=== PATIENT | male | born 1945 | race Caucasian/White ===

== ENCOUNTER 2020-05-29 21:18 | Emergency (ER) | payer MEDICARE, OTHER ==
[2020-05-29 21:44] VITALS: BP 176/88
--- NOTE | 2020-05-29 22:50 | ER Document Report ---
ED Medical Screen (RME) - General Chief Complaint: Fall Stated Complaint: FALL Time Seen by Provider: 05/29/20 22:47 - HPI Notes: 05/29/20 22:48 74-year-old male to the emergency department with complaints of a laceration to his posterior head that occurred just prior to arrival. He was helping his who has brain cancer try to get up. She was very weak and nearly fell and he caught her. As they were standing back up she let go and he fell backwards and struck his head onto the side of the bathtub. States there was a lot of blood. He denies any loss of consciousness or nausea or vomiting. He states he is not on any blood thinners. He admits that he has pain across the back of his shoulders but denies any midline neck pain. Brief medical exam notes a posterior occipital laceration that is approximately 4-1/2 cm in length with active oozing of the site. I performed a brief medical screening exam on the patient determined that the patient needs further evaluation and management by main side provider. I have placed initial orders to help expedite care. Physical Exam - Vital signs Vitals: Temp Pulse Resp BP Pulse Ox 98.3 F 88 18 176/88 H 96 05/29/20 21:41 05/29/20 21:41 05/29/20 21:41 05/29/20 21:41 05/29/20 21:41 Course - Vital Signs Vital signs: Temp Pulse Resp BP Pulse Ox 98.3 F 88 18 176/88 H 96 05/29/20 21:41 05/29/20 21:41 05/29/20 21:41 05/29/20 21:41 05/29/20 21:41
[2020-05-29] MEDS ORDERED: DIPH/PERTUSS(ACELL)/TETANUS VAC/PF 0.5 ML SYR (>=10YO) IM ONE (22:53)
--- NOTE | 2020-05-29 23:28 | RADIOLOGY REPORT (SQ) ---
INDICATION: head injury. Superficial soft tissue injury post trauma COMPARISON: None CORRELATION: None TECHNIQUE: Noncontrast spiral axial CT images were obtained from the skull base to vertex. This exam was performed according to our departmental dose-optimization program, which includes automated exposure control, adjustment of the mA and/or kV according to patient size and/or use of iterative reconstruction techniques. FINDINGS: There is no evidence of acute intracranial hemorrhage, midline shift, mass effect or mass lesion. Camacho-white differentiation is normal. There is no evidence of acute large territory infarct. Age-related involutional changes are identified. Presumed old small vessel ischemic changes are seen predominantly in a periventricular distribution.. Vascular calcification. Superficial soft tissue injury to the galea posteriorly The visualized paranasal sinuses are grossly clear. The orbits and eyeballs are unremarkable. The mastoid air cells are clear. Skull base and calvarium appear intact. IMPRESSION: No acute intracranial process is identified.
[2020-05-30] MEDS ORDERED: LIDOCAINE 1%/EPINEPHRINE INJ 20 ML VIAL INJ ONE (00:32)
--- NOTE | 2020-05-30 00:34 | ER Document Report ---
ED Wound - General Chief Complaint: Laceration Stated Complaint: FALL Time Seen by Provider: 05/29/20 22:47 Primary Care Provider: OCHOA SEE MD [Primary Care Provider] - Follow up as needed Notes: Patient is a 74-year-old male who comes emergency department for chief complaint of a laceration to his posterior scalp/head. He states that he was helping his to stand up, she was very weak and nearly fell, he caught her but has ever standing back up he fell backwards and struck his head on the side of the bathtub causing a laceration and bleeding. He denies loss of consciousness, nausea, vomiting, focal numbness or weakness. He is not on any blood thinners. Tetanus is not up to date. He denies any neck pain but he started to develop some soreness in the top of his shoulders. Son is at bedside and brought the patient to the emergency department. - Related Data Home Medications: benicar Past Medical History - General Information source: Patient, Relative - Son - Social History Smoking Status: Never Smoker Frequency of alcohol use: None Drug Abuse: None Lives with: Family Family History: Reviewed & Not Pertinent - Immunizations Immunizations up to date: No Hx Diphtheria, Pertussis, Tetanus Vaccination: Yes Review of Systems - Review of Systems Constitutional: No symptoms reported EENT: No symptoms reported Cardiovascular: No symptoms reported Respiratory: No symptoms reported Gastrointestinal: No symptoms reported Genitourinary: No symptoms reported Male Genitourinary: No symptoms reported Musculoskeletal: See HPI Skin: See HPI Hematologic/Lymphatic: No symptoms reported Neurological/Psychological: See HPI Physical Exam - Vital signs Vitals: Temp Pulse Resp BP Pulse Ox 98.3 F 88 18 176/88 H 96 05/29/20 21:41 05/29/20 21:41 05/29/20 21:41 05/29/20 21:41 05/29/20 21:41 - Notes Notes: GENERAL: Alert, interacts well. Patient with no signs of distress HEAD: Normocephalic. There is a 5 cm slightly irregular laceration that is horizontal, located over the occipital scalp. No noted hematoma, no other signs of trauma EYES: Pupils equal, round, and reactive to light. Extraocular movements intact. ENT: Oral mucosa moist, tongue midline. Oropharynx unremarkable. Airway patent. Nares patent, sinuses non-tender, ear canals unremarkable, TM's intact. NECK: Full range of motion. Supple. Trachea midline. No lymphadenopathy. LUNGS: Clear to auscultation bilaterally, no wheezes, rales, or rhonchi. No respiratory distress. Non-tender chest wall. HEART: Regular rate and rhythm. No murmur ABDOMEN: Soft, non-tender. Non-distended. EXTREMITIES: Moves all 4 extremities spontaneously. No edema, normal radial and dorsalis pedis pulses bilaterally. No cyanosis. BACK: no cervical, thoracic, lumbar midline tenderness. No saddle anesthesia, normal distal neurovascular exam. Moves all extremities in full range of motion. NEUROLOGICAL: Alert and oriented x3. Normal speech. Cranial nerves II through XII grossly intact. Strength 5/5 in all extremities. PSYCH: Normal affect, normal mood. SKIN: Warm, dry, normal turgor. No rashes or lesions noted. Course - Re-evaluation Re-evalutation: Patient with a laceration over the posterior scalp, no other signs of trauma. Patient states he is getting some general soreness in his shoulders now but he has no neck pain, there are no signs of trauma over the back, patient has no neurological deficits. CAT scan was performed in triage, this shows no acute findings. I discussed with patient, because of his lack of symptoms and injury on exam we did not add a cervical spine at this time. Wound was closed with valentin, discussed care, follow-up, return cautions, discussed handed precautions with patient and family, they state understanding and agreement. - Vital Signs Vital signs: Temp Pulse Resp BP Pulse Ox 98.3 F 88 18 176/88 H 96 05/29/20 21:41 05/29/20 21:41 05/29/20 21:41 05/29/20 21:41 05/29/20 21:41 Procedures - Laceration/Wound Repair Occipital scalp Wound length (cm): 5 Wound's Depth, Shape: Irregular Laceration pre-procedure: Sterile PPE donned, Sterile drapes applied, Shur-Clens applied Anesthetic type: 1% Lidocaine w/epi Wound explored: Clean, No foreign body removed Wound Repaired With: [place] Number of Sutures: 9 - [place] Post-procedure wound care: Sterile dressing applied Post-procedure NV exam normal: Yes Complications: No Discharge - Discharge Clinical Impression: Head injury Qualifiers: Encounter type: initial encounter Qualified Code(s): S09.90XA - Unspecified injury of head, initial encounter Scalp laceration Qualifiers: Encounter type: initial encounter Qualified Code(s): S01.01XA - Laceration without foreign body of scalp, initial encounter Condition: Stable Disposition: HOME, SELF-CARE Additional Instructions: The CAT scan of the head does not show any concerning findings. Please follow head injury precautions listed below. The valentin need to be removed in 7 days at a medical facility. Keep the area clean, clean gently with soap and water, dab dry, avoid soaking or scrubbing. You can apply a topical antibiotic to the area. Return for any signs of infection including developing or spreading redness, pain, discolored discharge, fever, etc. Head Injury Precautions At this point, there is no evidence that your head injury is serious. Observation is necessary, however. Limit activity for the first 24 hours. During the first 24 hours, check to see approximately every two to three hours that the patient is easily arousable, responds normally, and can perform common tasks such as walking without difficulty. Contact your doctor or go to the hospital if any of the following things occur: Persistent vomiting, difficulty in arousing the patient, worsening or continued headache, or failure to improve as expected. Head injuries can cause symptoms that persist for a few days or even a few weeks. Referrals: OCHOA SEE MD [Primary Care Provider] - Follow up as needed
== END 2020-05-30 01:45 | disposition home or self-care (01) ==
LOC: ER 21:18
DX: S01.01XA Laceration without foreign body of scalp, initial encounter (principal); W18.39XA Other fall on same level, initial encounter; W22.09XA Striking against other stationary object, initial encounter; Y93.F9 Activity, other caregiving; Z23 Encounter for immunization
CPT/HCPCS: 99284; 90471; 70450; 90715; 12002; J3490